=== PATIENT | male | born 1995 | race Caucasian/White ===

== ENCOUNTER 2016-09-29 21:25 | Emergency (ER) | payer BC ==
[2016-09-29 21:37] VITALS: RESP 16; TEMP 98.4
[2016-09-29 22:13] LABS: % IMMATURE GRANULYOCYTES 0.2 % (0.0-1.1); ABSOLUTE IMMATURE GRANULOCYTES 0.01 10^3/uL (0.00-0.10); ADD DIFF? NO; ADD MORPH? NO; ADD SCAN? NO; ATYPICAL LYMPHOCYTE FLAG 0 (0-99); FRAGMENT RBC FLAG 0 (0-99); HEMATOCRIT 45.2 % (40.0-51.0); LEFT SHIFT FLG 0 (0-99); LIPEMIA HEMOLYSIS FLAG 90 (0-99); MEAN CELL HEMOGLOBIN 32.2 pg (27.9-34.1); MEAN CELL HEMOGLOBIN CONCENTR. 35.4 g/dL (32.4-36.7); MEAN CELL VOLUME 90.9 fL (81.5-99.8); MEAN PLATELET VOLUME 9.4 fL (8.7-11.7); PLATELET CLUMPS FLAG 0 (0-99); PLATELET COUNT 326 10^3/uL (150-400); RED BLOOD CELL COUNT 4.97 10^6/uL (4.40-6.38); RED CELL DISTRIBUTION WIDTH 12.3 % (11.5-15.2)
[2016-09-29 22:22] LABS: ANION GAP 13 mEq/L (8-16); CALCIUM 9.1 mg/dL (8.5-10.4); CARBON DIOXIDE 20 mEq/l (22-31); CHLORIDE 109 mEq/L (97-110); GLOMERULAR FILTRATION RATE > 60; GLUCOSE 97 mg/dL (70-100); POTASSIUM 4.2 mEq/L (3.5-5.2); SODIUM 142 mEq/L (134-144)
--- NOTE | 2016-09-29 22:22 | EDPHY ---
H & P Stated Complaint: c/o R sided abd pain beginning this pm HPI/ROS: CHIEF COMPLAINT: Abdominal pain HISTORY OF PRESENT ILLNESS: Patient complains of right upper quadrant abdominal pain. This started approximately 1 hour ago. This was while eating dinner. It is primarily right upper quadrant. Radiates into the epigastrium. Moderate to severe at time of onset. Now [id number]. Nausea but no vomiting. No fever chills. No trauma or injury. In no previous history of right upper quadrant pain or gallbladder dysfunction. No abdominal surgeries. He admits to drinking 8 beers today as he was celebrating his graduation from college. Mother is at bedside and was there with the pain started the restroom. No other associated complaints or modifying factors. PREVIOUS ABDOMINAL SURGERIES/DIAGNOSES: None REVIEW OF SYSTEMS: Ten systems reviewed and are negative unless otherwise noted in the HPI EXAMINATION: General Appearance: Alert, no distress Head: normocephalic, atraumatic Eyes: Pupils equal and round, no conjunctival pallor or injection ENT, Mouth: Mucous membranes moist. Uvula midline. No erythema edema. Neck: Normal inspection, supple, non-tender Respiratory: Lungs are clear to auscultation. No wheezing, rhonchi or crackles. Cardiovascular: Regular rate and rhythm. No murmur. Pulses intact distally Gastrointestinal: Abdomen is soft. Right upper quadrant tenderness. Positive [place]. No distention no guarding. No tympany. No rigidity. Non-acute abdomen. Neurological: A&O, nonfocal, GCS 15. Skin: Warm and dry, no rash Extremities: Nontender, no pedal edema Psychiatric: Mood and affect normal DIFFERENTIAL DIAGNOSES: Including but not limited to cholelithiasis, cholecystitis, pancreatitis, gastritis, dehydration, hepatitis MDM: 10:20 p.m. Right upper quadrant pain is started mid meal this evening. No previous history of this. No abdominal surgeries. Moderate alcohol intake today. Vital signs reveal mild tachycardia at time of arrival. Laboratory studies thus far revealed normal CBC. Lipase and liver function tests are pending. I have ordered ultrasound of the gallbladder. He is in no acute distress. 10:50 p.m. Laboratory studies reveal a normal lipase, normal bilirubin, normal alkaline phosphatase. AST is mildly elevated but ALT is normal. Ultrasound is pending. 11:05 p.[address]. Notified by radiologist Dr. Bain. Ultrasound of the gallbladder reveals mild contraction of the gallbladder but no signs of obstruction or cholecystitis. No evidence of cholelithiasis. Appendix was not visualized on examination. 11:15 p.m. I have re-evaluated the patient. He remains mildly tachycardic after a L of fluid. He still has right-sided abdominal pain. Given this and the inability to visualize the appendix on ultrasound, I have ordered CT scan of the abdomen pelvis. The patient, his mother, and his father are comfortable with this plan. 11:50 p[address]. Notified by radiologist Dr. Bain. CT scan reveals contracted gallbladder but no other acute findings. Specifically the appendix is well visualized and exhibits no evidence of appendicitis. I have re-evaluated the patient. His abdominal exam is benign. Vital signs have improved. He received 2 L IV fluid is feeling significantly better. He would like to be discharged home. I do feel he is stable for discharge home at this time. He is to follow up with primary care physician for further workup in the possibility of by HIDA scan. I recommend clear liquid diet and advance slowly as tolerated. Return to ER for return of pain or vomiting. The patient and his mother and father bedside are comfortable this plan. He is discharged home in stable condition. ED Precautions: Worsening pain. Fever. Bloody stools. Bloody emesis. Constipation or diarrhea. SUPERVISION: Patient was evaluated in conjunction with the supervising physician. Please see their note for details. Source: Patient, Family Exam Limitations: No limitations - Personal History Tetanus Vaccine Date: < 10 years - Medical/Surgical History Hx Asthma: No Hx Chronic Respiratory Disease: No Hx Diabetes: No Hx Cardiac Disease: No Hx Renal Disease: No Hx Cirrhosis: No Hx Alcoholism: No Hx HIV/AIDS: No Hx Splenectomy or Spleen Trauma: No Other PMH: anxiety, ADHD, insomnia, sleep apnea. Surgical- Denies - Social History Smoking Status: Never smoked Constitutional: Initial Vital Signs Temperature (C) 98.4 F 09/29/16 21:34 Heart Rate 120 H 09/29/16 21:34 Respiratory Rate 16 09/29/16 21:34 Blood Pressure 107/51 L 09/29/16 21:34 O2 Sat (%) 94 09/29/16 21:34 O2 Delivery Mode Room Air Allergies/Adverse Reactions: No Known Allergies Allergy (Verified 09/29/16 21:37) Home Medications: Medication Instructions Recorded Adderall 10 MG (RX) 07/24/13 Klonopin 09/29/16 Ondansetron Odt [Zofran Odt 4 mg 4 mg PO Q6 PRN #12 tab 09/30/16 (*)] Medical Decision Making - Diagnostics Imaging Results: Imaging Impressions Abdomen Ultrasound 09/29/16 22:23 Impression: 1. Gallbladder contracted without cholelithiasis or biliary ductal dilation. 2. No peripancreatic fluid. Findings and recommendations discussed with Emergency Department physician, Mekhi Talbott PAC at 22:58 hour, 09/29/2016. Final report concurs with initial preliminary interpretation. Abdomen CT 09/29/16 23:14 Impression: 1. Mild constipation. 2. No CT evidence of appendicitis, abscess or bowel obstruction. 3. Otherwise normal. Findings and recommendations discussed with Emergency Department physician, Mekhi Talbott PAC at 23:44 hour, 09/29/2016. Final report concurs with initial preliminary interpretation. - Data Points Laboratory Results: Laboratory Results 09/29/16 21:49 09/29/16 21:49 09/29/16 09/29/16 21:49 21:49 WBC 5.49 10^3/uL 10^3/uL (3.80-9.50) RBC 4.97 10^6/uL 10^6/uL (4.40-6.38) Hgb 16.0 g/dL g/dL (13.7-17.5) Hct 45.2 % % (40.0-51.0) MCV 90.9 fL fL (81.5-99.8) MCH 32.2 pg pg (27.9-34.1) MCHC 35.4 g/dL g/dL (32.4-36.7) RDW 12.3 % % (11.5-15.2) Plt Count 326 10^3/uL 10^3/uL (150-400) MPV 9.4 fL fL (8.7-11.7) Neut % (Auto) 40.8 % % (39.3-74.2) Lymph % (Auto) 45.7 % H % (15.0-45.0) [place] % (Auto) 8.6 % % (4.5-13.0) Eos % (Auto) 4.2 % % (0.6-7.6) Baso % (Auto) 0.5 % % (0.3-1.7) Nucleat RBC Rel Count 0.0 % % (0.0-0.2) Absolute Neuts (auto) 2.24 10^3/uL 10^3/uL (1.70-6.50) Absolute Lymphs (auto) 2.51 10^3/uL 10^3/uL (1.00-3.00) Absolute Monos (auto) 0.47 10^3/uL 10^3/uL (0.30-0.80) Absolute Eos (auto) 0.23 10^3/uL 10^3/uL (0.03-0.40) Absolute Basos (auto) 0.03 10^3/uL 10^3/uL (0.02-0.10) Absolute Nucleated RBC 0.00 10^3/uL 10^3/uL (0-0.01) Immature Gran % 0.2 % % (0.0-1.1) Immature Gran # 0.01 10^3/uL 10^3/uL (0.00-0.10) Sodium 142 mEq/L mEq/L (134-144) Potassium 4.2 mEq/L mEq/L (3.5-5.2) Chloride 109 mEq/L mEq/L (97-110) Carbon Dioxide 20 mEq/l L mEq/l (22-31) Anion Gap 13 mEq/L mEq/L (8-16) BUN 14 mg/dL mg/dL (7-23) Creatinine 1.0 mg/dL mg/dL (0.7-1.3) Estimated GFR > 60 Glucose 97 mg/dL mg/dL (70-100) Calcium 9.1 mg/dL mg/dL (8.5-10.4) Total Bilirubin 0.6 mg/dL mg/dL (0.1-1.4) Conjugated Bilirubin 0.4 mg/dL mg/dL (0.0-0.5) Unconjugated Bilirubin 0.2 mg/dL mg/dL (0.0-1.1) AST 67 IU/L H IU/L (17-59) ALT 71 IU/L IU/L (21-72) Alkaline Phosphatase 56 IU/L IU/L (38-126) Total Protein 6.4 g/dL g/dL (6.3-8.2) Albumin 4.1 g/dL g/dL (3.5-5.0) Lipase 102.0 IU/L IU/L (23-300) Medications Given: Discontinued Medications Sodium Chloride (Ns) 1,000 mls @ 0 mls/hr IV ONCE ONE PRN Reason: Wide Open Stop: 09/29/16 23:15 Last Admin: 09/29/16 22:00 Dose: 1,000 mls Sodium Chloride (Ns) 1,000 mls @ 0 mls/hr IV ONCE ONE PRN Reason: Wide Open Stop: 09/29/16 23:30 Last Admin: 09/29/16 23:42 Dose: 1,000 mls Departure - Departure Disposition: Home, Routine, Self-Care Clinical Impression: RUQ abdominal pain Condition: Good Instructions: Abdominal Pain (ED), Ondansetron (By mouth) Additional Instructions: Increased fluid intake. Follow up with primary care physician. Return to ER for return of symptoms. Referrals: NONE *PRIMARY CARE P,. [Primary Care Provider] - As per Instructions Anirudh Fried MD [Medical Doctor] - As per Instructions Prescriptions: Ondansetron Odt [Zofran Odt 4 mg (*)] 4 mg PO Q6 PRN #12 tab PRN Reason: Nausea/Vomiting, Use 1st
[2016-09-29 22:47] LABS: ALANINE AMINOTRANSFERASE 71 IU/L (21-72); ALBUMIN 4.1 g/dL (3.5-5.0); ALKALINE PHOSPHATASE 56 IU/L (38-126); ASPARTATE AMINOTRANSFERASE 67 IU/L (17-59); BILIRUBIN,TOTAL 0.6 mg/dL (0.1-1.4); BILIRUBIN-CONJUGATED 0.4 mg/dL (0.0-0.5); BILIRUBIN-UNCONJUGATED 0.2 mg/dL (0.0-1.1); TOTAL PROTEIN 6.4 g/dL (6.3-8.2)
[2016-09-29] MEDS ORDERED: NS 1,000 ML IV ONE ×2 (23:14→23:29)
[2016-09-29] MEDS ORDERED: IOPAMIDOL (ISOVUE-300) 100 ML BTL ONE (23:19)
[2016-09-30] MEDS ORDERED: ONDANSETRON 4MG PREPACK#2 BTL TAKEHOME ONE (00:04)
[2016-09-30 00:18] VITALS: BP 109/62; PULSE 95; O2SAT 97
== END 2016-09-30 00:20 | disposition home or self-care (01) ==
DX: R10.11 Right upper quadrant pain (principal)
CPT/HCPCS: Q9967